=== PATIENT | female | born 1965 | race Caucasian/White ===

== ENCOUNTER 2023-02-07 14:25 | Emergency (ER) | payer BC ==
[2023-02-07] MEDS ORDERED: Lidocaine 1% 10 ML MDV INJECT ONE (14:34)
== END 2023-02-07 15:37 | disposition home or self-care (01) ==
LOC: VM.ED 14:25
DX: S62.635A Displaced fracture of distal phalanx of left ring finger, initial encounter for closed fracture (principal); S61.215A Laceration without foreign body of left ring finger without damage to nail, initial encounter; Z88.5 Allergy status to narcotic agent; W23.0XXA Caught, crushed, jammed, or pinched between moving objects, initial encounter
CPT/HCPCS: 11760; 73140-F3; 99283; J3490